=== PATIENT | male | born 1965 | race Caucasian/White ===

== ENCOUNTER → 2019-05-13 | Outpatient (CLI) | payer MEDICAID ==
[~2019-05-13] MED LIST: IOVERSOL 350 MG/ML 150 ML VIAL ONE; SODIUM CHLORIDE 0.9% 100 ML ONE
== END | disposition home or self-care (01) ==
LOC: RADMN 08:54
PROVIDERS: ATTEND Nutritionist Nutrition, Education
DX: I70.0 Atherosclerosis of aorta (principal); R59.0 Localized enlarged lymph nodes; R60.0 Localized edema; M51.37 Other intervertebral disc degeneration, lumbosacral region; R93.5 Abnormal findings on diagnostic imaging of other abdominal regions, including retroperitoneum
CPT/HCPCS: 75635; J7050; Q9967